=== PATIENT | male | born 1960 | race Caucasian/White ===

== ENCOUNTER 2017-01-21 20:48 | Emergency (ER) | payer OTHER ==
[2017-01-21 21:24] VITALS: BP 133/89; PULSE 73; TEMP 98.5; BMI 39.1
--- NOTE | 2017-01-21 21:28 | PDOC ---
History of Present Illness - General History Source: Patient Exam Limitations: No Limitations - History of Present Illness Initial Comments: 01/21/17 22:04 The patient is a 56 year old male with no significant past medical history who presents to the ED with complaints of 10 days of abdominal pain. He locates the pain to his periumbilical area, a 4/10 in severity that is constant. He denies any modifying factors. He denies any associated nausea or vomiting. The patient reports taking antibiotics for back acne which makes him have diarrhea. The patient denies any recent illness, fever, chills, cough, shortness of breath, chest pain, or urinary symptoms. PCP: Zuhair Tamez <Madeline Espinoza - Last Filed: 01/21/17 22:04> <Peggy Kelly - Last Filed: 01/22/17 03:49> - General Chief Complaint: Pain Stated Complaint: LOWER ABDOMINAL PAIN X 10 DAYS Time Seen by Provider: 01/21/17 20:54 Past History <Madeline Espinoza - Last Filed: 01/21/17 22:04> - Past Medical History GI Disorders: Yes - Psycho/Social/Smoking Cessation Hx Anxiety: No Suicidal Ideation: No Smoking History: Never smoked Hx Alcohol Use: Yes (OCCASIONAL) Drug/Substance Use Hx: No Substance Use Type: None <Peggy Kelly - Last Filed: 01/22/17 03:49> - Past Medical History Allergies/Adverse Reactions: Allergies Allergy/AdvReac Type Severity Reaction Status Date / Time No Known Allergies Allergy Verified 01/21/17 20:56 Home Medications: Ambulatory Orders Cholecalciferol (Vitamin D3) [Vitamin D3] 5,000 unit PO ASDIR 01/21/17 Pantoprazole Sodium [Protonix] 40 mg PO DAILY PRN 01/21/17 Review of Systems - Review of Systems Able to Perform ROS?: Yes Comments:: 01/21/17 22:04 CONSTITUTIONAL: Absent: fever, chills, diaphoresis, generalized weakness, malaise, loss of appetite HEENT: Absent: rhinorrhea, nasal congestion, throat pain, throat swelling, difficulty swallowing, mouth swelling, ear pain, eye pain, visual Changes CARDIOVASCULAR: Absent: chest pain, syncope, palpitations, irregular heart rate, lightheadedness , peripheral edema RESPIRATORY: Absent: cough, shortness of breath, dyspnea with exertion, orthopnea, wheezing, stridor, hemoptysis GASTROINTESTINAL: Present: airam-umbilical abdominal pain Absent:abdominal distension, nausea, vomiting, diarrhea, constipation, melena, hematochezia GENITOURINARY: Absent: dysuria, frequency, urgency, hesitancy, hematuria, flank pain, genital pain MUSCULOSKELETAL: Absent: myalgia, arthralgia, joint swelling SKIN: Absent: rash, itching, pallor HEMATOLOGIC/IMMUNOLOGIC: Absent: easy bleeding, easy bruising, lymphadenopathy, frequent infections ENDOCRINE: Absent: unexplained weight gain, unexplained weight loss, heat intolerance, cold intolerance NEUROLOGIC: Absent: headache, focal weakness or paresthesias, dizziness, unsteady gait, seizure, mental status changes, bladder or bowel incontinence PSYCHIATRIC: Absent: anxiety, depression, suicidal or homicidal ideation, hallucinations. All Other Systems: Reviewed and Negative <Madeline Espinoza - Last Filed: 01/21/17 22:04> *Physical Exam - Vital Signs Last Vital Signs Temp Pulse Resp BP Pulse Ox 98.5 F 73 16 133/89 98 01/21/17 20:49 01/21/17 20:49 01/21/17 20:49 01/21/17 20:49 01/21/17 20:49 - Physical Exam Comments: 01/21/17 22:04 GENERAL: The patient is awake, alert, and fully oriented, in no acute distress. HEAD: Normal with no signs of trauma. EYES: Pupils equal, round and reactive to light, extraocular movements intact, sclera anicteric, conjunctiva clear with no pallor. ENT: Ears normal, nares patent, oropharynx clear without exudates. Moist mucous membranes. NECK: Normal range of motion, supple without lymphadenopathy, JVD, or masses. LUNGS: Breath sounds equal, clear to auscultation bilaterally. No wheeze/ crackles. HEART: Regular rate and rhythm, normal S1 and S2 without murmur or rub. ABDOMEN: Mild palpable nontender midline defect, 2cm superior to umbilicus, moderaly distended, no peritoneal signs. BS wnl. No guarding or rebound. No hepatosplenomegaly. EXTREMITIES: Normal range of motion, no edema. No clubbing or cyanosis. No cords, erythema, or tenderness. NEUROLOGICAL: Cranial nerves II through XII grossly intact. Normal speech, normal gait. PSYCH: Normal mood, normal affect. SKIN: Warm, Dry, normal turgor, no rashes or lesions noted. <Madeline Espinoza - Last Filed: 01/21/17 22:04> - Vital Signs Last Vital Signs Temp Pulse Resp BP Pulse Ox 98.5 F 73 16 133/89 98 01/21/17 20:49 01/21/17 20:49 01/21/17 20:49 01/21/17 20:49 01/21/17 20:49 <Peggy Kelly - Last Filed: 01/22/17 03:49> Medical Decision Making - Medical Decision Making Documentation has been prepared under my direction and personally reviewed by me in its entirety. I attest that this documented accurately reflects all work, treatment, procedures and medical decision making performed by me. As noted above, this 56-year-old man presents with a few week history of discomfort just above his umbilicus. He has no associated symptoms with this except for localized pain/tenderness. Exam reveals subtle defect in the midline approximately 2 cm superior to the umbilicus. On initial exam there was a nontender fullness in the area which was easily reduced. No other abnormalities noted. Although patient has no symptoms suggestive of small bowel obstruction, flatplate and upright x-rays of the abdomen were performed to evaluate for evidence of bowel obstruction or ileus. FUA shows normal bowel pattern and no other abnormality Results discussed with the patient. He will be given a referral for evaluation by Dr. Stevens,[facility] surgery team. He should call on Tuesday to make an appointment within the next several days. If he has persistent pain or experiences vomiting/fever, he should return to the emergency room <Peggy Kelly - Last Filed: 01/22/17 03:49> *DC/Admit/Observation/Transfer - Attestations Scribe Attestion: 01/21/17 22:06 Documentation prepared by Madeline Espinoza, acting as medical economics consultant for Peggy Kelly MD. <Madeline Espinoza - Last Filed: 01/21/17 22:04> <Peggy Kelly - Last Filed: 01/22/17 03:49> Diagnosis at time of Disposition: Abdominal wall hernia - Discharge Dispostion Disposition: HOME Condition at time of disposition: Stable - Referrals Referrals: Zuhair Tamez [Primary Care Provider] - 1 week Red Stevens MD [Staff Physician] - 3 days - Patient Instructions Printed Discharge Instructions: Abdominal Hernia Additional Instructions: tylenol as needed for pain return to ER if you have severe pain/vomiting/fever call Dr Stevens's office for followup within 3-[address] Tamez within 1 week Print Language: GEORGIAN
== END 2017-01-21 22:51 | disposition home or self-care (01) ==
LOC: FER 20:48
DX: K43.9 Ventral hernia without obstruction or gangrene (principal)
CPT/HCPCS: 74020-TC; 99282-25

== ENCOUNTER 2017-02-02 12:21 | Day surgery (SDC) | payer OTHER ==
[2017-01-31 11:50] VITALS: BMI 38.2
[2017-02-02] MEDS ORDERED: DESFLURANE GAS 240 ML BOTTLE IH ONE (14:50)
[2017-02-02] MEDS ORDERED: MIDAZOLAM HCL 2 MG/2 ML SINGLE DOSE VIAL ONE (15:10)
--- NOTE | 2017-02-02 15:11 | HP ---
Addendum entered and electronically signed by Jany Reyna PA 02/02/17 16:43: Original Note: Admitting History and Physical - Admission History of Present Illness: The patient is a 56 yo male who presented to the ER on 01/21/17 for abdominal pain. He was found to have a reducible ventral hernia above the umbilicus and sent to Dr Riggins office for elective repair. He denies any abd pain, nausea or vomiting. Last BM yesterday. No fevers. He also denies any CP/SOB. History Source: Patient Limitations to Obtaining History: No Limitations - Past Medical History Cardiovascular: No: Deep Vein Thrombosis, HTN Pulmonary: Yes: Sleep Apnea (not diagnosed but noted periods of decreased breaths while sleeping and snoring). No: Asthma, COPD Gastrointestinal: Yes: GERD. No: Constipation, GI Bleed Renal/: No: Hematuria, Renal Calculi Heme/Onc: No: Anemia Musculoskeletal: No: Chronic low back pain Endocrine: No: Diabetes Mellitus - Past Surgical History Past Surgical History: Yes: None - Smoking History Smoking history: Never smoked - Alcohol/Substance Use Hx Alcohol Use: Yes (OCCASIONAL) Home Medications - Allergies Allergies/Adverse Reactions: Allergies Allergy/AdvReac Type Severity Reaction Status Date / Time No Known Allergies Allergy Verified 02/02/17 13:14 - Home Medications Home Medications: Ambulatory Orders Omeprazole 20 mg PO PRN PRN 01/31/17 Review of Systems - Review of Systems Constitutional: denies: Chills, Fever Neck: denies: Decreased ROM Cardiovascular: denies: Chest Pain, Edema, Palpitations Respiratory: reports: Snoring. denies: Cough, SOB Gastrointestinal: denies: Abdominal Pain, Constipation, Nausea Genitourinary: reports: Burning. denies: Dysuria, Hematuria Musculoskeletal: denies: Extremity Pain, Joint Pain, Joint Swelling Integumentary: denies: Bruising Neurological: denies: Dizziness, Headache Hematology/Lymphatic: denies: Easily Bruised, Excessive Bleeding Physical Examination Vital Signs: Vital Signs Temperature 98.8 F 02/02/17 13:18 Pulse Rate 81 02/02/17 13:18 Respiratory Rate 16 02/02/17 13:18 Blood Pressure 141/83 02/02/17 13:18 O2 Sat by Pulse Oximetry (%) 98 02/02/17 13:18 Constitutional: Yes: Well Nourished, Calm Eyes: Yes: WNL, Conjunctiva Clear. No: Sclera Icterus HENT: Yes: WNL, Atraumatic, Normocephalic Neck: Yes: WNL, Supple, Trachea Midline Cardiovascular: Yes: WNL, Regular Rate and Rhythm Respiratory: Yes: WNL, Regular, CTA Bilaterally Gastrointestinal: Yes: WNL, Normal Bowel Sounds, Soft. No: Palpable Mass, Tenderness Musculoskeletal: No: Joint Stiffness, Joint Swelling Extremities: No: Calf Tenderness, Deformity Edema: No Peripheral Pulses WNL: Yes Peripheral Pulses: Left Doralis Pedis: 2+, Right Dorsalis Pedis: 2+, Left Femoral: 2+, Right Femoral: 2+ Integumentary: No: Bruising, Erythema Neurological: Yes: WNL, Alert, Oriented ...Motor Strength: WNL, LUE, LLE, RUE, RLE Psychiatric: Yes: WNL, Alert, Oriented Imaging - Results EKG: Other (01/28-NSR rate 92) Assessment/Plan 56 yo male for ventral hernia repair today He remains npo Medical clearance in chart from 01/31-cleared for surgery DVT ppx with SCD/early ambulation
[2017-02-02] MEDS ORDERED: BUPIVACAINE HCL/PF 0.5% (5MG/ML) 10 ML VIAL ONE (15:13)
[2017-02-02] MEDS ORDERED: ceFAZolin SODIUM 1 GM VIAL IVPB ONE (15:30)
[2017-02-02] MEDS ORDERED: HYDROmorphone HCL/PF 1 MG/ML VIAL (FOR PYXIS CHARGING ONLY) ONE (15:47)
[2017-02-02] MEDS ORDERED: BUPIVACAINE HCL/PF (5 MG/ML) 30 ML VIAL IJ ONE (16:00)
[2017-02-02] MEDS ORDERED: NEOSTIGMINE METHYLSULFATE 0.5 MG/ML - 10 ML MDV ONE (16:01)
--- NOTE | 2017-02-02 16:12 | OP ---
Operative Note - Note: Operative Date: 02/02/17 Pre-Operative Diagnosis: ventral hernia Operation: repair ventral hernia Findings: 1.5 cm. fascial defect w/ pre-peritoneal fat Surgeon: Red Stevens Utilities Estimator And Drafter: Jany Reyna Anesthesia: General Specimens Removed: hernia sac/fat Estimated Blood Loss (mls): 10 Operative Report Dictated: Yes
--- NOTE | 2017-02-02 16:49 | SURG ---
Surgery Shank Maker Note Shank Maker: Jany Reyna PA-C Date of Service: 02/02/17 Diagnosis: t ventral hernia Procedure: repair ventral hernia I was present for the entirety of the operative procedure. For further detail, please refer to operative report. Visit type - Case Type Case Type: Scheduled Admission - Emergency Emergency Visit: No - New patient This patient is new to me today: Yes Date on this admission: 02/02/17 - Critical Care Critical Care patient: No
[2017-02-02] MEDS ORDERED: ONDANSETRON 4 MG/2 ML VIAL IVPUSH PRN (16:51)
[2017-02-02] MEDS ORDERED: ACETAMINOPHEN 500 MG TABLET (FP) PO PRN (16:51)
[2017-02-02] MEDS ORDERED: LACTATED RINGERS SOLUTION 1,000 ML IV SCH (17:00)
[2017-02-02 18:15] VITALS: TEMP 98.6
[2017-02-02 18:35] VITALS: BP 106/75; PULSE 78
--- NOTE | 2017-02-05 09:23 | OP ---
DATE OF OPERATION: 02/02/2017 PREOPERATIVE DIAGNOSIS: Ventral hernia. POSTOPERATIVE DIAGNOSIS: Ventral hernia. PROCEDURE: Repair of ventral hernias. SURGEON: Red Stevens MD TERMITE CONTROL SERVICE REPRESENTATIVE: Jany Reyna PA-C ANESTHESIA: General. OPERATIVE FINDINGS: There was a ventral hernia a few centimeters above the umbilicus. The defect was approximately 1.5 cm in the fascia. The hernia contained preperitoneal fat. Rest of the findings were unremarkable. DESCRIPTION OF PROCEDURE: The patient was placed on the operating table in supine position, and after the induction of general anesthesia, the patients abdomen was prepped with ChloraPrep and draped in sterile fashion. A time-out was taken, and an incision mapped out over the hernia. An incision was made with a scalpel and taken down through skin and subcutaneous tissues until the hernia sac was identified. The sac was opened and herniated preperitoneal fat was excised using electrocautery. The defect was then clearly identified, and the fascia infiltrated with 0.5% Marcaine and 1% Xylocaine equal concentration. The defect was closed with several [id number] 0 Ti-Cron sutures. Hemostasis was checked for and noted to be good, and then, the wound was copiously irrigated with sterile saline and closed in layers with interrupted 2-0 Vicryl for the deep subcutaneous fascia, interrupted 3-0 Vicryl for the deep dermis, and 4-0 Biosyn in a subcuticular continuous fashion to reapproximate the skin edges. Steri-Strips and dry sterile dressing were placed, and the procedure terminated at this point, and the patient roused from general anesthesia and transferred to the post-anesthesia care unit in stable condition, awake and alert. ESTIMATED BLOOD LOSS: Minimal. DRAINS: None. SPECIMENS: Herniated preperitoneal fat and hernia sac to Pathology. I, Red Stevens, was physically present in the operating room from the time the patient was placed on the operating table until he was transferred to the post-anesthesia care unit in my accompaniment. MD ARUNA Christianson/[id number]
--- NOTE | 2017-02-09 11:19 | PATH ---
Surgical Pathology Report Patient Name: JC CHAMBERS [facility]. Rec. #: [id number] /Age/Gender: 1960 (Age: 56) / M Account: [id number] Location: [facility] SURGICAL Taken: 02/02/2017 Received: 02/03/2017 Reported: 02/04/2017 Physicians: Red Stevens MD Specimen(s) Received VENTRAL HERNIA SAC Clinical History Ventral hernia Final Diagnosis SOFT TISSUE, ABDOMINAL WALL, EXCISION: BENIGN ADIPOSE TISSUE WITH VASCULAR CONGESTION, AND SCANT BENIGN FIBROMEMBRANOUS TISSUE. Electronically Signed Zuhair Navarro M.D. Gross Description Received in formalin labeled "hernia sac," is a 2.0 x 1.8 x 0.5 cm portion of yellow, lobulated adipose tissue with attached fibromembranous tissue. No masses or areas of hemorrhage or necrosis are identified. The specimen is serially sectioned and entirely submitted in one cassette. /02/03/2017 saudi02/03/2017
== END 2017-02-02 21:55 | disposition home or self-care (01) ==
LOC: JASU-SURG 12:21 → J6S 20:45 → JASU-SURG 21:55
PROVIDERS: ATTEND Surgery
PROC: 0WQF0ZZ Repair Abdominal Wall, Open Approach (ICD-10-PCS; principal; 2017-02-02 14:00)
DX: K43.9 Ventral hernia without obstruction or gangrene (principal)
CPT/HCPCS: 88302-TC; 94760